=== PATIENT | female | born 1960 | race American Indian/Alaskan Native ===

== ENCOUNTER 2017-01-13 20:03 | Observation (INO) | payer MEDICARE, BC ==
--- NOTE | 2017-01-13 20:39 | C.PDOC ---
History Of Present Illness Patient presents to the ER with a complaint of chest tightness that began 5 hours prior to arrival. Patient states she was resting when it began and reports having a non-productive cough. Denies any fever, nausea, or vomiting. Time Seen by Provider: 01/13/17 20:39 Chief Complaint (Nursing): Chest Pain History Per: Patient History/Exam Limitations: no limitations Onset/Duration Of Symptoms: Hrs (5) Current Symptoms Are (Timing): Still Present Context: Other Severity: Moderate Pain Scale Rating Of: 4 Quality: Tightness (Chest) Associated Symptoms: denies: Nausea Modifying Factors: None Exacerbating Factors: None Alleviating Factors: None Recent travel outside of the [place]: No Additional History Per: Family Past Medical History Reviewed: Historical Data, Nursing Documentation, Vital Signs Vital Signs: Last Vital Signs Temp 99 F 01/13/17 20:18 Pulse 84 01/13/17 20:18 Resp 16 01/13/17 20:18 BP 129/81 01/13/17 20:18 Pulse Ox 96 01/13/17 21:30 - Medical History PMH: Asthma Family History: States: No Known Family Hx - Social History Hx Alcohol Use: No Hx Substance Use: No - Immunization History Hx Tetanus Toxoid Vaccination: Yes Review Of Systems Constitutional: Negative for: Fever, Chills Cardiovascular: Positive for: Chest Pain, Other (Chest tightness). Negative for : Palpitations Respiratory: Negative for: Cough, Shortness of Breath Gastrointestinal: Negative for: Nausea, Vomiting Genitourinary: Negative for: Dysuria Musculoskeletal: Negative for: Back Pain Skin: Negative for: Rash, Lesions, Jaundice Neurological: Negative for: Weakness Psych: Negative for: Anxiety Physical Exam - Physical Exam Appears: Well, Non-toxic Skin: Warm, Dry Oral Mucosa: Moist Chest: Symmetrical Cardiovascular: Rhythm Regular Respiratory: No Rales, Rhonchi (Scattered), No Wheezing Gastrointestinal/Abdominal: Soft, No Tenderness Neurological/Psych: Oriented x3, Normal Speech, Normal Cognition ED Course And Treatment - Laboratory Results Result Diagrams: 01/13/17 21:07 01/13/17 21:07 ECG: Interpreted By Me, Viewed By Me ECG Rhythm: Sinus Rhythm (65), Nonspecific Changes (old iwmi,ant ischemic changes) O2 Sat by Pulse Oximetry: 96 (Room air) Pulse Ox Interpretation: Normal - Radiology CXR: Interpreted by Me, Viewed By Me CXR Interpretation: No: Infiltrates, Fracture, Pnemothorax Progress Note: EKG, blood work, blood culture, chest x-ray, and urinalysis ordered. Ecotrin PO administered. spoke with dr melendez. ekg sent. will see the pt . Disposition Discussed With Dr.: Raymond Juarez Comment: accepted the pt on his service and took over the care at 10:04PM Doctor Will See Patient In The: ED Counseled Patient/Family Regarding: Studies Performed, Diagnosis - Disposition Disposition: HOSPITALIZED Disposition Time: 20:39 Condition: FAIR - POA Present On Arrival: None - Clinical Impression Clinical Impression: Chest pain, Congestive heart failure - Scribe Statement The provider has reviewed the documentation as recorded by the Scribe Provider Attestation: Abraham Egan All medical record entries made by the Scribe were at my direction and personally dictated by me. I have reviewed the chart and agree that the record accurately reflects my personal performance of the history, physical exam, medical decision making, and the department course for this patient. I have also personally directed, reviewed, and agree with the discharge instructions and disposition. Decision To Admit - Pt Status Changed To: Hospital Disposition Of: Observation - . Bed Request Type: Telemetry Admitting Physician: Raymond Juarez Patient Diagnosis: Chest pain, Congestive heart failure
[2017-01-13] MEDS ORDERED: Aspirin 325 mg EC Tablets PO STA (20:59)
[2017-01-13] MEDS ORDERED: Aspirin 325 mg EC Tablets PO ONE (21:07)
[2017-01-13 21:11] LABS: BASO % 0.5 % (0.0-2.0); EOS # 0.2 K/uL (0.0-0.7); EOS % 2.1 % (0.0-4.0); HEMATOCRIT 35.4 % (34.0-47.0); LYMPH # 0.9 K/uL (1.0-4.3); LYMPH % 9.4 % (20.0-40.0); MEAN CELL VOLUME 83.7 fL (81.0-99.0); MEAN CORPUSCULAR HEMOGLOBIN 26.9 pg (27.0-31.0); MEAN CORPUSCULAR HGB CONC 32.1 g/dL (33.0-37.0); MEAN PLATELET VOLUME 7.7 fL (7.2-11.7); MONO # 0.5 K/uL (0.0-0.8); MONO % 5.2 % (0.0-10.0); PLATELET COUNT 368 K/uL (130-400); WHITE BLOOD COUNT 9.3 K/uL (4.8-10.8)
[2017-01-13 21:20] LABS: CHLORIDE 101 mmol/L (98-107); SODIUM 140 mmol/L (132-148)
[2017-01-13 21:21] LABS: POTASSIUM 3.7 mmol/L (3.6-5.2)
[2017-01-13 21:23] LABS: ALB/GLOB RATIO 0.9 (1.0-2.1); ALKALINE PHOSPHATASE 130 U/L (38-126); ALT/SGPT 16 U/L (9-52); AST/SGOT 19 U/L (14-36); BILIRUBIN,TOTAL 0.3 mg/dL (0.2-1.3); BLOOD UREA NITROGEN 13 mg/dL (7-17); CARBON DIOXIDE 23 mmol/L (22-30); GFR AFRICAN-AMERICAN > 60; TOTAL PROTEIN 7.9 g/dL (6.3-8.3)
[2017-01-13 21:24] LABS: CALCIUM 8.9 mg/dl (8.6-10.4); GLUCOSE,RANDOM 109 mg/dL (65-105)
[2017-01-13 22:08] LABS: EOSINOPHIL 1 % (0-4); NEUTROPHIL 90 % (50-75); TOTAL CELLS COUNTED 100
[2017-01-13] MEDS ORDERED: cefTRIAXone IV 1 gm in Dextros 50 ML IVPB ONE ×2 (22:15→22:42)
[2017-01-13 23:39] LABS: RBC URINE 13 /hpf (0-3); URINE BACTERIA FEW (<OCC); URINE BILIRUBIN NEGATIVE (NEGATIVE); URINE BLOOD 2+ (NEGATIVE); URINE COLOR Yellow (YELLOW); URINE GLUCOSE (UA) NORMAL (Normal); URINE KETONE TRACE mg/dL (NEGATIVE); URINE LEUKOCYTE ESTERASE 3+ Leu/uL (Negative); URINE PROTEIN NEGATIVE (NEGATIVE); URINE UROBILINOGEN NORMAL mg/dL (0.2-1.0); WBC URINE 16 /hpf (0-5)
--- NOTE | 2017-01-14 00:23 | CP.PCM.HP ---
<Maikel Hogue - Last Filed: 01/14/17 00:29> History of Present Illness - History of Present Illness History of Present Illness: This is a 56 yo F with PMH significant of HTN, HLD, CAD with abnormal stress test in 2013 that presented with a chief complaint of chest pain. Pt states that the chest pain occurred at around 3:00 in the afternoon, lasted for about 15 minutes and started while sitting down using the restroom. She states that it was pressure like in quality and there was no radiation of symptoms. She admits to becoming diaphoretic and light headed with palpitations. Pt also admits to a dry cough that she has had for a while. She denies any LOC, headaches, sob, orthopnea, nausea, vomiting, numbness or tingling. Pt states that she took as aspirin after the incident and states that the chest pain is for the most part resolved, but she was instructed by her [employer] supervisor to come to ED with any chest pain symptoms. Cardio - Narinder PMH: as per HPI, rheumatoid arthritis and asthma PSH: Annuloplasty ring in mitral valve Home medications: On medications for chronic conditions but does not know what. Allergies: NKA FH: heart disease SH: distant (>30yrs) smoking hx, social Etoh and denies drug use Present on Admission - Present on Admission Any Indicators Present on Admission: No Review of Systems - Constitutional Constitutional: absent: Chills, Fever - Cardiovascular Cardiovascular: Chest Pain, Diaphoresis, Palpitations. absent: Pain Radiating to Arm/Neck/Jaw - Respiratory Respiratory: Cough. absent: Dyspnea, Wheezing - Gastrointestinal Gastrointestinal: absent: Abdominal Pain, Nausea, Vomiting - Genitourinary Genitourinary: absent: Urinary Frequency, Urinary Urgency - Musculoskeletal Musculoskeletal: absent: Muscle Weakness, Stiffness - Integumentary Integumentary: absent: Pruritus, Rash - Neurological Neurological: absent: Numbness, Tingling Past Patient History - Past Social History Smoking Status: Never Smoked - CARDIAC Hx Angina: Yes - PULMONARY Hx Asthma: Yes - PSYCHIATRIC Hx Substance Use: No - SURGICAL HISTORY Hx Open Heart Surgery: Yes (CABG, Valve Replacement) - ANESTHESIA Hx Anesthesia: Yes Hx Anesthesia Reactions: No Hx Malignant Hyperthermia: No Meds Allergies/Adverse Reactions: Allergies Allergy/AdvReac Type Severity Reaction Status Date / Time No Known Allergies Allergy Unverified 01/13/17 20:23 Physical Exam - Constitutional Appears: Well, Non-toxic, No Acute Distress - Head Exam Head Exam: ATRAUMATIC, NORMOCEPHALIC - Eye Exam Eye Exam: Normal appearance Pupil Exam: PERRL - ENT Exam ENT Exam: Mucous Membranes Moist - Respiratory Exam Respiratory Exam: Clear to Auscultation Bilateral, NORMAL BREATHING PATTERN. absent: Rales, Wheezes - Cardiovascular Exam Cardiovascular Exam: REGULAR RHYTHM, +S1, +S2 - GI/Abdominal Exam GI & Abdominal Exam: Normal Bowel Sounds, Soft. absent: Distended - Extremities Exam Extremities exam: Positive for: normal capillary refill, normal inspection. Negative for: pedal edema - Back Exam Back exam: NORMAL INSPECTION - Neurological Exam Neurological exam: Alert, Oriented x3 - Skin Skin Exam: Dry, Warm Results - Vital Signs Recent Vital Signs: Last Vital Signs Temp 99 F 01/13/17 20:18 Pulse 70 01/14/17 00:15 Resp 16 01/14/17 00:15 BP 121/80 01/14/17 00:15 Pulse Ox 100 01/14/17 00:15 - Labs Result Diagrams: 01/13/17 21:07 01/13/17 21:07 Labs: Laboratory Results - last 24 hr 01/13/17 23:40 Urine Color Yellow Urine Clarity Hazy Urine pH 5.0 Ur Specific [place] 1.024 Urine Protein Negative Urine Glucose (UA) Normal Urine Ketones Trace Urine Blood 2+ H Urine Nitrate Negative Urine Bilirubin Negative Urine Urobilinogen Normal Ur Leukocyte Esterase 3+ H Urine WBC (Auto) 16 H Urine RBC (Auto) 13 H Ur Squamous Epith Cells 8 H Urine Bacteria Few H Assessment & Plan - Assessment and Plan (Free Text) Assessment: Chest pain - resolved - Hx of abnormal stress test/CAD - CXR - no ifiltrates or obvious pleural effusions - EKG - Sinus Rhythm (65), Nonspecific Changes (old inferior wall OH, ant ischemic changes) - ASA - Crestor - Cardio (Narinder) consulted - help appreciate - This is pt's personal [employer] supervisor, familiar and aware of pt being admitted - will see - f/u recs - Echo ordered - Serial ALEXIA's - Labs including: A1C, Lipid panel and thyroid panel - f/u - F/U with pt's Pharmacy for up-to-date list of meds Hx of HTN - Normotensive in ED - F/U with pt's Pharmacy for up-to-date list of meds Hx of HLD - AM labs - Will restart home meds Hx of Rheumatoid arthritis - No pain currently - F/U with pt's Pharmacy for up-to-date list of meds PPX - Lovenox - Pepcid <Raymond Juarez - Last Filed: 01/14/17 06:23> Results - Vital Signs Recent Vital Signs: Last Vital Signs Temp 99.9 F H 01/13/17 23:35 Pulse 73 01/14/17 00:22 Resp 16 01/14/17 00:15 BP 121/80 01/14/17 00:15 Pulse Ox 100 01/14/17 00:15 - Labs Result Diagrams: 01/13/17 21:07 01/13/17 21:07 Labs: Laboratory Results - last 24 hr 01/13/17 01/14/17 23:40 03:56 Total Creatine Kinase 22 L CK-MB (Mass) < 0.22 Troponin I, Quant < 0.0120 Urine Color Yellow Urine Clarity Hazy Urine pH 5.0 Ur Specific [place] 1.024 Urine Protein Negative Urine Glucose (UA) Normal Urine Ketones Trace Urine Blood 2+ H Urine Nitrate Negative Urine Bilirubin Negative Urine Urobilinogen Normal Ur Leukocyte Esterase 3+ H Urine WBC (Auto) 16 H Urine RBC (Auto) 13 H Ur Squamous Epith Cells 8 H Urine Bacteria Few H Assessment & Plan - Date & Time Date: 01/14/17 (I have seen and examined the patient. I agree with the findings and plan of care as documented by Dr. Hogue. Patient with Chest pain. History of hypertension and hyperlipidemia. Consult to Dr Barcenas. Patient unsure of home meds. Will confirm with Dr. Barcenas and patient's pharmacy before restarting. Stated she had taken her meds prior to arrival to ED. ROMIx3 with EKG. 2D Echo. Aspirin and Statin. Monitor for acute changes.) Time: 06:20 Attending/Attestation - Attestation I have personally seen and examined this patient.: Yes I have fully participated in the care of the patient.: Yes I have reviewed all pertinent clinical information: Yes
[2017-01-14] MEDS ORDERED: Tramadol 25 mg PO PRN (07:48)
[2017-01-14 08:19] VITALS: BP 132/71; PULSE 67; RESP 20; TEMP 98.3; O2SAT 96
--- NOTE | 2017-01-14 08:41 | RAD ---
PROCEDURE: CHEST RADIOGRAPH, 1 VIEW HISTORY: chest pain COMPARISON: None available. FINDINGS: LUNGS: Clear. PLEURA: No pneumothorax or pleural fluid seen. CARDIOVASCULAR: Possible mild cardiomegaly. OSSEOUS STRUCTURES: No significant abnormalities. VISUALIZED UPPER ABDOMEN: Normal. OTHER FINDINGS: None. IMPRESSION: Possible mild cardiomegaly. No evidence of active pulmonary disease.
[2017-01-14] MEDS ORDERED: Enoxaparin 40 mg Syringe SC SCH (10:00)
--- NOTE | 2017-01-14 10:53 | CP.PCM.CON ---
History of Present Illness - History of Present Illness History of Present Illness: I was asked to see patient by Dr. Lou. Patient is a 56 year old female with PMH HTN, CAD s/p CABG, AVR, rheumatoid arthritis who presents with chest pain. The patient states she developed cough and dyspnea. She was recently diagnosed with bronchitis. The patient ws treated as an outpatient. Yesterday seh developed substernal chest pain which did not radiate. There was no associated dyspnea. Symptoms improved from admission. Review of Systems - Constitutional Constitutional: absent: As Per HPI, Anorexia, Chills, Daytime Sleepiness, Excessive Sweating, Fatigue, Fever, Frequent Falls, Headache, Increased Appetite , Lethargy, Malaise, Night Sweats, Snoring, Sleep Apnea, Weight Gain, Weight Loss, Weakness, Other - EENT Eyes: absent: As Per HPI, Blind Spots, Blurred Vision, Change in Vision, Decreased Night Vision, Diplopia, Discharge, Dry Eye, Exophthalmos, Floaters, Irritation, Itchy Eyes, Loss of Peripheral Vision, Pain, Photophobia, Requires Corrective Lenses, Sees Flashes, Spots in Vision, Tunnel Vision, Other Visual Disturbances, Loss of Vision, Other Nose/Mouth/Throat: absent: As Per HPI, Epistaxis, Nasal Congestion, Nasal Discharge, Nasal Obstruction, Nasal Trauma, Nose Pain, Post Nasal Drip, Sinus Pain, Sinus Pressure, Bleeding Gums, Change in Voice, Dental Pain, Dry Mouth, Dysphagia, Halitosis, Hoarsness, Lip Swelling, Mouth Lesions, Mouth Pain, Odynophagia, Sore Throat, Throat Swelling, Tongue Swelling, Facial Pain, Neck Pain, Neck Mass, Other - Breasts Breasts: absent: As Per HPI, Change in Shape, Mass, Pain, Nipple Discharge, Nipple Inversion, Skin Changes, Swelling, Other - Cardiovascular Cardiovascular: absent: As Per HPI, Acrocyanosis, Chest Pain, Chest Pain at Rest , Chest Pain with Activity, Claudication, Diaphoresis, Dyspnea, Dyspnea on Exertion, Edema, Irregular Heart Rhythm, Pain Radiating to Arm/Neck/Jaw, Leg Edema, Leg Ulcers, Lightheadedness, Orthopnea, Palpitations, Paroxysmal Nocturnal Dyspnea, Pedal Edema, Radiating Pain, Rapid Heart Rate, Slow Heart Rate, Syncope, Other - Respiratory Respiratory: Cough - Gastrointestinal Gastrointestinal: absent: As Per HPI, Abdominal Pain, Belching, Bloating, Change in Bowel Habits, Change in Stool Character, Coffee Ground Emesis, Constipation, Cramping, Diarrhea, Dyspepsia, Dysphagia, Early Satiety, Excessive Flatus, Fecal Incontinence, Heartburn, Hematemesis, Hematochezia, Loose Stools, Melena, Nausea, Odynophagia, Temesmus, Vomiting, Other - Genitourinary Genitourinary: absent: As Per HPI, Change in Urinary Stream, Difficulty Urinating, Dysuria, Flank Pain, Hematuria, Pyuria, Nocturia, Urinary Incontinence, Urinary Frequency, Urinary Hesitance, Urinary Urgency, Voiding Freq/Small Amts, Freq UTI, Hx Renal/Bladder Calculi, Hx /Renal Surgery, Bladder Distension, Other - Musculoskeletal Musculoskeletal: Deformity, Radiating Pain into Limb - Integumentary Integumentary: absent: As Per HPI, Acne, Alopecia, Bleeding Lesions, Change in Hair, Change in Nails, Change in Pigmentation, Changing Lesions, Dry Skin, Erythema, Furuncle, Hirsutism, Lesions, New Lesions, Non-Healing Lesions, Photosensitivity, Pruritus, Rash, Skin Pain, Skin Ulcer, Sores, Striae, Swelling , Unusual Bruising, Wounds, Jaundice, Other - Neurological Neurological: absent: As Per HPI, Abnormal Gait, Abnormal Hearing, Abnormal Movements, Abnormal Speech, Behavioral Changes, Burning Sensations, Confusion, Convulsions, Disequilibrium, Dizziness, Numbness, Focal Weakness, Frequent Falls , Headaches, Lack of Coordination, Loss of Vision, Memory Loss, Paresthesias, Radicular Pain, Restless Legs, Sensory Deficit, Syncope, Tingling, Tremor, Vertigo, Weakness, Other Visual Disturbances, Other - Psychiatric Psychiatric: absent: As Per HPI, Abnormal Sleep Pattern, Anhedonia, Anxiety, Auditory Hallucinations, Behavioral Changes, Change in Appetite, Change in Libido, Confusion, Depression, Difficulty Concentrating, Hallucinations, Homicidal Ideation, Hopelessness, Irritability, Memory Loss, Mood Swings, Panic Attacks, Paranoia, Suicidal Ideation, Visual Hallucinations, Tactile Hallucinations, Other - Endocrine Endocrine: absent: As Per HPI, Change in Body Appearance, Change in Libido, Cold Intolorance, Deepening of Voice, Excessive Sweating, Fatigue, Flushing, Heat Intolorance, Increase in Ring/Shoe/Hat Size, Palpitations, Polydipsia, Polyphagia, Polyuria, Other - Hematologic/Lymphatic Hematologic: absent: As Per HPI, Easy Bleeding, Easy Bruising, Lymphadenopathy, Other Past Patient History - Past Medical History & Family History Past Medical History?: Yes - Past Social History Smoking Status: Never Smoked - PULMONARY Hx Asthma: Yes - MUSCULOSKELETAL/RHEUMATOLOGICAL Hx Falls: No Hx Osteoarthritis: Yes - PSYCHIATRIC Hx Substance Use: No - SURGICAL HISTORY Hx Open Heart Surgery: Yes (CABG, Valve Replacement) - ANESTHESIA Hx Anesthesia: Yes Hx Anesthesia Reactions: No Hx Malignant Hyperthermia: No Meds Allergies/Adverse Reactions: Allergies Allergy/AdvReac Type Severity Reaction Status Date / Time No Known Allergies Allergy Unverified 01/13/17 20:23 - Medications Medications: Current Medications Aspirin (Aspirin Chewable) 81 mg PO DAILY [facility] Last Admin: 01/14/17 09:51 Dose: 81 mg Carvedilol (Coreg) 25 mg PO BID [facility] Last Admin: 01/14/17 09:52 Dose: 25 mg Enoxaparin Sodium (Lovenox) 40 mg SC DAILY [facility] Last Admin: 01/14/17 09:52 Dose: 40 mg Losartan Potassium (Cozaar) 25 mg PO DAILY [facility] Rosuvastatin Calcium (Crestor) 10 mg PO HS [facility] Rosuvastatin Calcium (Crestor) 5 mg PO HS [facility] Tramadol HCl (Ultram) 50 mg PO Q4H PRN PRN Reason: for pain Last Admin: 01/14/17 09:59 Dose: 50 mg Physical Exam - Constitutional Appears: Non-toxic - Head Exam Head Exam: NORMAL INSPECTION - Eye Exam Eye Exam: Normal appearance - ENT Exam ENT Exam: Mucous Membranes Moist - Neck Exam Neck exam: Positive for: Full Rom - Respiratory Exam Respiratory Exam: Decreased Breath Sounds - Cardiovascular Exam Cardiovascular Exam: REGULAR RHYTHM - GI/Abdominal Exam GI & Abdominal Exam: Normal Bowel Sounds - Rectal Exam Rectal Exam: Deferred - Extremities Exam Extremities exam: Positive for: joint swelling. Negative for: pedal edema - Back Exam Back exam: NORMAL INSPECTION - Neurological Exam Neurological exam: Alert, Oriented x3 - Psychiatric Exam Psychiatric exam: Normal Affect - Skin Skin Exam: Normal Color Results - Vital Signs Recent Vital Signs: Last Vital Signs Temp 98.3 F 01/14/17 08:18 Pulse 67 01/14/17 08:18 Resp 20 01/14/17 08:18 BP 132/71 01/14/17 09:52 Pulse Ox 96 01/14/17 08:18 - Labs Result Diagrams: 01/13/17 21:07 01/13/17 21:07 Labs: Laboratory Results - last 24 hr 01/13/17 01/14/17 23:40 03:56 Total Creatine Kinase 22 L CK-MB (Mass) < 0.22 Troponin I, Quant < 0.0120 Urine Color Yellow Urine Clarity Hazy Urine pH 5.0 Ur Specific [place] 1.024 Urine Protein Negative Urine Glucose (UA) Normal Urine Ketones Trace Urine Blood 2+ H Urine Nitrate Negative Urine Bilirubin Negative Urine Urobilinogen Normal Ur Leukocyte Esterase 3+ H Urine WBC (Auto) 16 H Urine RBC (Auto) 13 H Ur Squamous Epith Cells 8 H Urine Bacteria Few H - EKG Data EKG Interpreted by: Myself EKG shows normal: Sinus rhythm Assessment & Plan (1) Chest pain Assessment and Plan: troponin negative x 2. If third troponin negative, can d/c patient home. schedule outpatient stress test. Status: Acute (2) CAD (coronary artery disease) Assessment and Plan: history of CABG. will need outpatient stress test Status: Acute (3) HTN (hypertension) Assessment and Plan: blood pressure is controlled Status: Acute (4) Hypercholesteremia Assessment and Plan: goal LDL<100 Status: Acute
[2017-01-14 12:17] LABS: BASO % 0.6 % (0.0-2.0); EOS # 0.1 K/uL (0.0-0.7); EOS % 1.9 % (0.0-4.0); HEMATOCRIT 30.2 % (34.0-47.0); LYMPH # 1.7 K/uL (1.0-4.3); LYMPH % 22.2 % (20.0-40.0); MEAN CELL VOLUME 84.4 fL (81.0-99.0); MEAN CORPUSCULAR HEMOGLOBIN 27.2 pg (27.0-31.0); MEAN CORPUSCULAR HGB CONC 32.2 g/dL (33.0-37.0); MONO # 0.7 K/uL (0.0-0.8); MONO % 9.4 % (0.0-10.0); RED CELL DISTRIBUTION WIDTH 16.2 % (11.5-14.5); WHITE BLOOD COUNT 7.7 K/uL (4.8-10.8)
[2017-01-14 12:29] LABS: CHLORIDE 101 mmol/L (98-107)
[2017-01-14 12:30] LABS: POTASSIUM 3.2 mmol/L (3.6-5.2); SODIUM 140 mmol/L (132-148)
[2017-01-14 12:31] LABS: CHOLESTEROL 157 mg/dL (0-199)
[2017-01-14 12:32] LABS: ALKALINE PHOSPHATASE 109 U/L (38-126); ALT/SGPT 11 U/L (9-52); AST/SGOT 16 U/L (14-36); BILIRUBIN,TOTAL 0.3 mg/dL (0.2-1.3); BLOOD UREA NITROGEN 13 mg/dL (7-17); CARBON DIOXIDE 26 mmol/L (22-30); GFR AFRICAN-AMERICAN > 60; GLUCOSE,RANDOM 98 mg/dL (65-105); TOTAL PROTEIN 7.2 g/dL (6.3-8.3)
[2017-01-14 12:33] LABS: ALB/GLOB RATIO 0.8 (1.0-2.1); CALCIUM 8.7 mg/dl (8.6-10.4); MAGNESIUM 2.2 mg/dL (1.6-2.3); PHOSPHOROUS 3.2 mg/dL (2.5-4.5)
[2017-01-14 13:01] LABS: THYROID STIMULATING HORMONE 1.33 mIU/L (0.46-4.68)
[2017-01-14] MEDS: Potassium Chloride 20 mEq ER Tab PO SCH ×2 (13:59→14:45)
--- NOTE | 2017-01-14 21:17 | CP.PCM.DIS ---
<Latrell Greenfield H - Last Filed: 01/14/17 21:13> Provider - Provider Date of Admission: 01/13/17 22:07 Attending physician: Jaycob Lou MD Consults: Dr. Barcenas cardiology Time Spent in preparation of Discharge (in minutes): 45 Hospital Course - Lab Results Lab Results: Most Recent Lab Values WBC 7.7 K/uL (4.8-10.8) 01/14/17 12:06 RBC 3.58 Mil/uL (3.80-5.20) L 01/14/17 12:06 Hgb 9.7 g/dL (11.0-16.0) L 01/14/17 12:06 Hct 30.2 % (34.0-47.0) L 01/14/17 12:06 MCV 84.4 fL (81.0-99.0) 01/14/17 12:06 MCH 27.2 pg (27.0-31.0) 01/14/17 12:06 MCHC 32.2 g/dL (33.0-37.0) L 01/14/17 12:06 RDW 16.2 % (11.5-14.5) H 01/14/17 12:06 Plt Count 336 K/uL (130-400) 01/14/17 12:06 MPV 8.0 fL (7.2-11.7) 01/14/17 12:06 Neut % (Auto) 65.9 % (50.0-75.0) 01/14/17 12:06 Lymph % (Auto) 22.2 % (20.0-40.0) 01/14/17 12:06 [place] % (Auto) 9.4 % (0.0-10.0) 01/14/17 12:06 Eos % (Auto) 1.9 % (0.0-4.0) 01/14/17 12:06 Baso % (Auto) 0.6 % (0.0-2.0) 01/14/17 12:06 Neut # 5.1 K/uL (1.8-7.0) 01/14/17 12:06 Lymph # 1.7 K/uL (1.0-4.3) 01/14/17 12:06 [place] # 0.7 K/uL (0.0-0.8) 01/14/17 12:06 Eos # 0.1 K/uL (0.0-0.7) 01/14/17 12:06 Baso # 0.0 K/uL (0.0-0.2) 01/14/17 12:06 Neutrophils % (Manual) 90 % (50-75) H 01/13/17 21:07 Lymphocytes % (Manual) 5 % (20-40) L 01/13/17 21:07 Monocytes % (Manual) 4 % (0-10) 01/13/17 21:07 Eosinophils % (Manual) 1 % (0-4) 01/13/17 21:07 Platelet Estimate Normal (NORMAL) 01/13/17 21:07 Polychromasia Slight 01/13/17 21:07 Hypochromasia (manual) Slight 01/13/17 21:07 Anisocytosis (manual) Slight 01/13/17 21:07 Target Cells Slight 01/13/17 21:07 Ovalocytes Slight 01/13/17 21:07 APTT 33 SECONDS (21-34) 01/13/17 21:07 Sodium 140 mmol/L (132-148) 01/14/17 12:06 Potassium 3.2 mmol/L (3.6-5.2) L 01/14/17 12:06 Chloride 101 mmol/L (98-107) 01/14/17 12:06 Carbon Dioxide 26 mmol/L (22-30) 01/14/17 12:06 Anion Gap 16 (10-20) 01/14/17 12:06 BUN 13 mg/dL (7-17) 01/14/17 12:06 Creatinine 0.6 MG/DL (0.7-1.2) L 01/14/17 12:06 Est GFR ( Amer) > 60 01/14/17 12:06 Est GFR (Non-Af Amer) > 60 01/14/17 12:06 Random Glucose 98 mg/dL (65-105) 01/14/17 12:06 Calcium 8.7 mg/dl (8.6-10.4) 01/14/17 12:06 Phosphorus 3.2 mg/dL (2.5-4.5) 01/14/17 12:06 Magnesium 2.2 mg/dL (1.6-2.3) 01/14/17 12:06 Total Bilirubin 0.3 mg/dL (0.2-1.3) 01/14/17 12:06 AST 16 U/L (14-36) 01/14/17 12:06 ALT 11 U/L (9-52) 01/14/17 12:06 Alkaline Phosphatase 109 U/L (38-126) 01/14/17 12:06 Total Creatine Kinase 24 U/L (30-135) L 01/14/17 12:06 CK-MB (Mass) < 0.22 ng/mL (0.0-3.38) 01/14/17 12:06 Troponin I < 0.0120 ng/mL (0.00-0.120) 01/13/17 21:07 Troponin I, Quant < 0.0120 ng/mL (0.00-0.120) 01/14/17 12:06 NT-Pro-B Natriuret Pep 930 pg/mL (0-900) H 01/13/17 21:07 Total Protein 7.2 g/dL (6.3-8.3) 01/14/17 12:06 Albumin 3.3 g/dL (3.5-5.0) L 01/14/17 12:06 Globulin 3.9 gm/dL (2.2-3.9) 01/14/17 12:06 Albumin/Globulin Ratio 0.8 (1.0-2.1) L 01/14/17 12:06 Triglycerides 51 mg/dL (0-149) 01/14/17 12:06 Cholesterol 157 mg/dL (0-199) 01/14/17 12:06 LDL Cholesterol Direct 89 mg/dL (0-129) 01/14/17 12:06 HDL Cholesterol 34 mg/dL (30-70) 01/14/17 12:06 Free T4 1.14 ng/dL (0.78-2.19) 01/14/17 12:06 TSH 3rd Generation 1.33 mIU/L (0.46-4.68) 01/14/17 12:06 Urine Color Yellow (YELLOW) 01/13/17 23:40 Urine Clarity Hazy (Clear) 01/13/17 23:40 Urine pH 5.0 (5.0-8.0) 01/13/17 23:40 Ur Specific [place] 1.024 (1.003-1.030) 01/13/17 23:40 Urine Protein Negative mg/dL (NEGATIVE) 01/13/17 23:40 Urine Glucose (UA) Normal mg/dL (Normal) 01/13/17 23:40 Urine Ketones Trace mg/dL (NEGATIVE) 01/13/17 23:40 Urine Blood 2+ (NEGATIVE) H 01/13/17 23:40 Urine Nitrate Negative (NEGATIVE) 01/13/17 23:40 Urine Bilirubin Negative (NEGATIVE) 01/13/17 23:40 Urine Urobilinogen Normal mg/dL (0.2-1.0) 01/13/17 23:40 Ur Leukocyte Esterase 3+ Bret/uL (Negative) H 01/13/17 23:40 Urine WBC (Auto) 16 /hpf (0-5) H 01/13/17 23:40 Urine RBC (Auto) 13 /hpf (0-3) H 01/13/17 23:40 Ur Squamous Epith Cells 8 /hpf (0-5) H 01/13/17 23:40 Urine Bacteria Few (<OCC) H 01/13/17 23:40 - Hospital Course Hospital Course: Initial History: This is a 56 yo F with PMH significant of HTN, HLD, CAD with abnormal stress test in 2013 that presented with a chief complaint of chest pain. Pt states that the chest pain occurred at around 3:00 in the afternoon, lasted for about 15 minutes and started while sitting down using the restroom. She states that it was pressure like in quality and there was no radiation of symptoms. She admits to becoming diaphoretic and light headed with palpitations. Pt also admits to a dry cough that she has had for a while. She denies any LOC, headaches, sob, orthopnea, nausea, vomiting, numbness or tingling. Pt states that she took as aspirin after the incident and states that the chest pain is for the most part resolved, but she was instructed by her colorist dyer to come to ED with any chest pain symptoms. Hospital course: Patient admitted to hospital for chest pain. She was ruled out with three consecutive cardiac enzymes. She was seen by cardiology consult Dr. Barcenas who was familar with patient who agreed that if all her cardiac enzymes are negative she can be discharged home. Patient was discharged with a script for Aspirin 81mg included with her other home medications. Echo that was ordered was cancelled. Labs, imaging, and notes are found in the EMR. Discharge Plan/Instructions Patient to be discharged home per Dr. Lou and Dr. Barcenas. Patient will continue all her home medication. She will also take Aspirin 81mg, patient given 30 day script. Patient will follow up with Dr. Barcenas for outpatient stress test. Patient will also follow up with his PMD for post hospital follow up and medication refill post hospital care and primary care. Patient to return to ED when symptoms return. ischarge instruction/plan: Discharge diagnosis: Chest Pain h/o CAD with CABG h/o rheumatoid arthritis h/o arhtritis h/o hyperlipedmia Discharge Exam - Head Exam Head Exam: NORMAL INSPECTION - Eye Exam Eye Exam: Normal appearance Pupil Exam: NORMAL ACCOMODATION - ENT Exam ENT Exam: Normal Exam - Respiratory Exam Respiratory Exam: Clear to PA & Lateral, NORMAL BREATHING PATTERN. absent: Rales, Rhonchi, Wheezes - Cardiovascular Exam Cardiovascular Exam: REGULAR RHYTHM, RRR, +S1, +S2 - GI/Abdominal Exam GI & Abdominal Exam: Normal Bowel Sounds. absent: Soft, Tenderness - Extremities Exam Extremities exam: normal inspection - Back Exam Back exam: NORMAL INSPECTION - Skin Skin Exam: Normal Color Discharge Plan - Discharge Medications Prescriptions: Aspirin [Aspirin Chewable] 81 mg PO DAILY #30 chew - Follow Up Plan Condition: FAIR Disposition: HOME/ ROUTINE Instructions: Aspirin (By mouth), Heart Failure (DC), Coronary Artery Disease ( DC), Chest Pain (DC) Additional Instructions: Patient to be discharged home per Dr. Lou and Dr. Barcenas. Patient will continue all her home medication. She will also take Aspirin 81mg, patient given 30 day script. Patient will follow up with Dr. Barcenas for outpatient stress test. Patient will also follow up with his PMD for post hospital follow up and medication refill post hospital care and primary care. Patient to return to ED when symptoms return. Referrals: Familia Barcenas MD [Staff Provider] - <Jaycob Lou - Last Filed: 01/18/17 15:03> Provider - Provider Date of Admission: 01/13/17 22:07 Attending physician: Jaycob Lou MD Hospital Course - Lab Results Lab Results: Micro Results 01/13/17 23:45 Blood Blood Culture - Preliminary NO GROWTH AFTER 4 DAYS 01/13/17 23:45 Blood Blood Culture - Preliminary NO GROWTH AFTER 4 DAYS Most Recent Lab Values WBC 7.7 K/uL (4.8-10.8) 01/14/17 12:06 RBC 3.58 Mil/uL (3.80-5.20) L 01/14/17 12:06 Hgb 9.7 g/dL (11.0-16.0) L 01/14/17 12:06 Hct 30.2 % (34.0-47.0) L 01/14/17 12:06 MCV 84.4 fL (81.0-99.0) 01/14/17 12:06 MCH 27.2 pg (27.0-31.0) 01/14/17 12:06 MCHC 32.2 g/dL (33.0-37.0) L 01/14/17 12:06 RDW 16.2 % (11.5-14.5) H 01/14/17 12:06 Plt Count 336 K/uL (130-400) 01/14/17 12:06 MPV 8.0 fL (7.2-11.7) 01/14/17 12:06 Neut % (Auto) 65.9 % (50.0-75.0) 01/14/17 12:06 Lymph % (Auto) 22.2 % (20.0-40.0) 01/14/17 12:06 [place] % (Auto) 9.4 % (0.0-10.0) 01/14/17 12:06 Eos % (Auto) 1.9 % (0.0-4.0) 01/14/17 12:06 Baso % (Auto) 0.6 % (0.0-2.0) 01/14/17 12:06 Neut # 5.1 K/uL (1.8-7.0) 01/14/17 12:06 Lymph # 1.7 K/uL (1.0-4.3) 01/14/17 12:06 [place] # 0.7 K/uL (0.0-0.8) 01/14/17 12:06 Eos # 0.1 K/uL (0.0-0.7) 01/14/17 12:06 Baso # 0.0 K/uL (0.0-0.2) 01/14/17 12:06 Neutrophils % (Manual) 90 % (50-75) H 01/13/17 21:07 Lymphocytes % (Manual) 5 % (20-40) L 01/13/17 21:07 Monocytes % (Manual) 4 % (0-10) 01/13/17 21:07 Eosinophils % (Manual) 1 % (0-4) 01/13/17 21:07 Platelet Estimate Normal (NORMAL) 01/13/17 21:07 Polychromasia Slight 01/13/17 21:07 Hypochromasia (manual) Slight 01/13/17 21:07 Anisocytosis (manual) Slight 01/13/17 21:07 Target Cells Slight 01/13/17 21:07 Ovalocytes Slight 01/13/17 21:07 APTT 33 SECONDS (21-34) 01/13/17 21:07 Sodium 140 mmol/L (132-148) 01/14/17 12:06 Potassium 3.2 mmol/L (3.6-5.2) L 01/14/17 12:06 Chloride 101 mmol/L (98-107) 01/14/17 12:06 Carbon Dioxide 26 mmol/L (22-30) 01/14/17 12:06 Anion Gap 16 (10-20) 01/14/17 12:06 BUN 13 mg/dL (7-17) 01/14/17 12:06 Creatinine 0.6 MG/DL (0.7-1.2) L 01/14/17 12:06 Est GFR ( Amer) > 60 01/14/17 12:06 Est GFR (Non-Af Amer) > 60 01/14/17 12:06 Random Glucose 98 mg/dL (65-105) 01/14/17 12:06 Hemoglobin A1c 5.6 % (4.2-6.5) 01/14/17 12:06 Calcium 8.7 mg/dl (8.6-10.4) 01/14/17 12:06 Phosphorus 3.2 mg/dL (2.5-4.5) 01/14/17 12:06 Magnesium 2.2 mg/dL (1.6-2.3) 01/14/17 12:06 Total Bilirubin 0.3 mg/dL (0.2-1.3) 01/14/17 12:06 AST 16 U/L (14-36) 01/14/17 12:06 ALT 11 U/L (9-52) 01/14/17 12:06 Alkaline Phosphatase 109 U/L (38-126) 01/14/17 12:06 Total Creatine Kinase 24 U/L (30-135) L 01/14/17 12:06 CK-MB (Mass) < 0.22 ng/mL (0.0-3.38) 01/14/17 12:06 Troponin I < 0.0120 ng/mL (0.00-0.120) 01/13/17 21:07 Troponin I, Quant < 0.0120 ng/mL (0.00-0.120) 01/14/17 12:06 NT-Pro-B Natriuret Pep 930 pg/mL (0-900) H 01/13/17 21:07 Total Protein 7.2 g/dL (6.3-8.3) 01/14/17 12:06 Albumin 3.3 g/dL (3.5-5.0) L 01/14/17 12:06 Globulin 3.9 gm/dL (2.2-3.9) 01/14/17 12:06 Albumin/Globulin Ratio 0.8 (1.0-2.1) L 01/14/17 12:06 Triglycerides 51 mg/dL (0-149) 01/14/17 12:06 Cholesterol 157 mg/dL (0-199) 01/14/17 12:06 LDL Cholesterol Direct 89 mg/dL (0-129) 01/14/17 12:06 HDL Cholesterol 34 mg/dL (30-70) 01/14/17 12:06 Free T4 1.14 ng/dL (0.78-2.19) 01/14/17 12:06 TSH 3rd Generation 1.33 mIU/L (0.46-4.68) 01/14/17 12:06 Urine Color Yellow (YELLOW) 01/13/17 23:40 Urine Clarity Hazy (Clear) 01/13/17 23:40 Urine pH 5.0 (5.0-8.0) 01/13/17 23:40 Ur Specific [place] 1.024 (1.003-1.030) 01/13/17 23:40 Urine Protein Negative mg/dL (NEGATIVE) 01/13/17 23:40 Urine Glucose (UA) Normal mg/dL (Normal) 01/13/17 23:40 Urine Ketones Trace mg/dL (NEGATIVE) 01/13/17 23:40 Urine Blood 2+ (NEGATIVE) H 01/13/17 23:40 Urine Nitrate Negative (NEGATIVE) 01/13/17 23:40 Urine Bilirubin Negative (NEGATIVE) 01/13/17 23:40 Urine Urobilinogen Normal mg/dL (0.2-1.0) 01/13/17 23:40 Ur Leukocyte Esterase 3+ Bret/uL (Negative) H 01/13/17 23:40 Urine WBC (Auto) 16 /hpf (0-5) H 01/13/17 23:40 Urine RBC (Auto) 13 /hpf (0-3) H 01/13/17 23:40 Ur Squamous Epith Cells 8 /hpf (0-5) H 01/13/17 23:40 Urine Bacteria Few (<OCC) H 01/13/17 23:40 Attending/Attestation - Attestation I have personally seen and examined this patient.: Yes I have fully participated in the care of the patient.: Yes I have reviewed all pertinent clinical information, including history, physical exam and plan: Yes Notes (Text): 01/18/17 15:03 Patient was seen and examined at bedside with the resident This is late computer entry Acute coronary syndrome ruled out Patient to be colorist dyer Dr. Barcenas. Patient clear for discharge to home Patient follow-up in Dr. Barcenas office for further workup I agree with the above discharge note by the resident
--- NOTE | 2017-01-15 13:01 | PCM.HF ---
Heart Failure Core Measure - Heart Failure Ejection Fraction: 40 % or Greater Left Ventricular Function to be assessed after discharge: No KATRIN Inhibitor Prescribed: No Contraindication/Reason for not providing: Not indicated Beta-Tapan Prescribed: None Contraindication/Reason for not providing: Not indicated Angiotensin II Receptor [place] Prescribed: No Contraindication/Reason for not providing: Not indicated AnticoagulationTherapy for Atrial Fibrillation/Atrialflutter: No Contraindication/Reason for not providing: Not indicated Aldosterone Antagonist Prescribed: No Contraindication/Reason for not providing: Not indicated Hydralazine Nitrate Prescribed: No Contraindication/Reason for not providing: Not indicated Implantable Cardioverter Defibrillator Therapy: No Contraindication/Reason for not providing: Not indicated Cardiac Resynchronization Therapy Prescribed: No Contraindication/Reason for not providing: Not indicated - Follow up Will be discharged to: [facility] Facility Follow Up Date (must be within 7 days from discharge): 01/15/17 Follow Up Time: 09:00
--- NOTE | 2017-01-15 23:11 | CARD ---
APPROVED REPORT EKG Measurement Heart [id number] <Conclusion> Normal sinus rhythm T wave abnormality, consider anterior ischemia Abnormal ECG
--- NOTE | 2017-01-16 08:21 | CARD ---
APPROVED REPORT EKG Measurement Heart [id number] <Conclusion> Normal sinus rhythm Rightward axis Minimal voltage criteria for LVH, may be normal variant Inferior infarct, age undetermined ST & T wave abnormality, consider anterior ischemia Abnormal ECG
== END 2017-01-14 16:00 | disposition home or self-care (01) ==
LOC: C.ER 20:03 → C.9E 22:07 → C.6T 22:42
PROVIDERS: ADMIT Internal Medicine; ATTEND Internal Medicine
DX: R07.9 Chest pain, unspecified (principal); I50.9 Heart failure, unspecified; J45.909 Unspecified asthma, uncomplicated
CPT/HCPCS: 36415; 71010; 80053; 80061; 81001; 83036; 83735; 83880; 84100; 84439; 84443; 84484; 85025; 85730; 87040; 93005; 99283; G0378; J1650

== ENCOUNTER 2017-06-13 09:14 | Day surgery (SDC) | payer BC, MEDICARE ==
[2017-06-13 11:33] VITALS: O2SAT 100
[2017-06-13] MEDS ORDERED: Propofol 10 mg/ml Inj (20 ML) ONE (11:48)
[2017-06-13 12:40] VITALS: TEMP 97
[2017-06-13 13:31] VITALS: BP 140/85; PULSE 58; RESP 13
== END 2017-06-13 13:25 | disposition home or self-care (01) ==
LOC: C.ENDO 09:14
PROVIDERS: ATTEND Internal Medicine Gastroenterology
DX: Z12.11 Encounter for screening for malignant neoplasm of colon (principal); K57.30 Diverticulosis of large intestine without perforation or abscess without bleeding; K64.1 Second degree hemorrhoids; Z80.0 Family history of malignant neoplasm of digestive organs; I10 Essential (primary) hypertension; I25.10 Atherosclerotic heart disease of native coronary artery without angina pectoris; Z95.1 Presence of aortocoronary bypass graft; E78.5 Hyperlipidemia, unspecified; Z95.2 Presence of prosthetic heart valve; M06.9 Rheumatoid arthritis, unspecified; Z87.891 Personal history of nicotine dependence
CPT/HCPCS: 45378; J2704